=== PATIENT | female | born 1995 | race Caucasian/White ===

== ENCOUNTER 2021-06-16 14:42 | Emergency (ER) | payer MEDICAID, SELFPAY | END 2021-06-16 15:30 | disposition left against medical advice (07) | LOC: BURERS 14:42 | DX: Z53.21 Procedure and treatment not carried out due to patient leaving prior to being seen by health care provider (principal) ==

== ENCOUNTER 2022-09-30 10:30 | Emergency (ER) | payer SELFPAY ==
[2022-09-30] MEDS ORDERED: Clindamycin 150 MG CAP ONE (10:57)
[2022-09-30] MEDS ORDERED: HYDROcodone/Acetaminophen 10/325 mg Tablet ONE (10:57)
== END 2022-09-30 11:05 | disposition home or self-care (01) ==
LOC: BURERS 10:30
DX: K04.7 Periapical abscess without sinus (principal); K02.9 Dental caries, unspecified; K03.81 Cracked tooth; F17.210 Nicotine dependence, cigarettes, uncomplicated
CPT/HCPCS: 99283